=== PATIENT | male | born 1960 | race Caucasian/White ===

== ENCOUNTER 2022-03-12 08:49 | Outpatient (CLI) | payer OTHER, SELFPAY ==
[2022-03-12 10:27] LABS: PSA Screen* 0.79 ng/mL (0.10-4.00)
== END 2022-03-12 08:50 | disposition home or self-care (01) ==
LOC: NFLDREF 08:50
PROVIDERS: PCP Family Medicine; Visit Provider Family Medicine
DX: Z12.5 Encounter for screening for malignant neoplasm of prostate (principal)
CPT/HCPCS: 84153

== ENCOUNTER 2023-03-11 10:03 | Outpatient (CLI) | payer OTHER, SELFPAY | END 2023-03-11 10:04 | disposition home or self-care (01) | PROVIDERS: PCP Family Medicine; Visit Provider Family Medicine | DX: Z00.00 Encounter for general adult medical examination without abnormal findings (principal); E03.9 Hypothyroidism, unspecified; E27.1 Primary adrenocortical insufficiency; E56.9 Vitamin deficiency, unspecified; Z12.5 Encounter for screening for malignant neoplasm of prostate; Z13.6 Encounter for screening for cardiovascular disorders | CPT/HCPCS: 80053; 82306; 84153; 84443 ==

== ENCOUNTER 2023-03-22 08:30 | Outpatient (CLI) | payer OTHER, SELFPAY | END 2023-03-22 08:31 | disposition home or self-care (01) | LOC: NFLDREF 12:33 | PROVIDERS: PCP Family Medicine; Referring Provider Family Medicine; Visit Provider Family Medicine | DX: Z13.6 Encounter for screening for cardiovascular disorders (principal) | CPT/HCPCS: 80061 ==

== ENCOUNTER 2024-02-28 08:05 | Outpatient (CLI) | payer OTHER, SELFPAY ==
--- OUTSIDE RECORDS SUMMARY | 2024-03-01 13:38 | XMS_ITS | Clinical Summary ---
Author Organization [facility] Address [place], [place] [address] Care Team Providers Care Supervisor Finishing Department Name Role Phone Eduardo Isabel MD Primary Care Provider [phone] Tessa Chopra MD Unavailable Allergies No known active allergies Medications Medication Sig Dispensed Refills Start Date End Date Status CALCIUM + D 600 MG-200 UNIT TAB Take 1 tablet by mouth daily 30 12 02/10/2005 Active FISH OIL 1,000 MG CAP daily 0 0 12/13/2007 Active aspirin 81 mg tablet Take 1 tablet by mouth once daily with a meal. 0 12/04/2012 Active CPAP CPAP, heated humidifier, mask, headgear, filters and tubing. For home use. 1 unit 0 09/06/2013 Active sildenafil citrate (VIAGRA) 100 mg tablet Take 1 tablet by mouth once daily if needed for Erectile Dysfunction. Take 30min to 4 hours before sexual activity. Max 100mg/24hr. 15 tablet 0 12/11/2013 Active levothyroxine (SYNTHROID) 150 mcg tabletIndications:Un specified hypothyroidism,Khadra on's disease (HC) Take 1 tablet by mouth once daily. 90 tablet 3 01/01/2015 Active hydrocortisone (CORTEF) 10 mg tabletIndications:Ad dison's disease (HC) TAKE ONE AND ONE-HALF TABLETS BY MOUTH IN THE MORNING AND ONE TABLETIN THE EVENING WITH MEALS. 225 tablet 3 01/01/2015 Active fludrocortisone (FLORINEF) 0.1 mg tab NoIndications:Addiso n's disease (HC) Take 1 tablet by mouth once daily. 90 tablet 3 01/01/2015 Active metFORMIN (GLUCOPHAGE) 850 mg tablet Take 1 tablet by mouth 2 times daily. 0 01/26/2016 Active topiramate (TOPAMAX) 25 mg tablet Take 1 tablet by mouth 2 times daily. 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 Hypothyroidism 12/13/2007 Corticoadrenal insufficiency 02/10/2005 Other and unspecified hyperlipidemia 02/10/2005 Overview (02/10/2005): low HDL cholesterol Other chronic nonalcoholic liver disease 005 Overview (02/10/2005): fatty liver Resolved Problems Problem Noted Date Diagnosed Date Resolved Date Prediabetes 10/06/2010 01/08/2013 Immunizations Name Administration Dates Next Due Influenza, IIV3 (Age >=3 years) 01/05/20 14,01/23/2013,03/11/2006,2004,02/19/2000 Influenza, IIV4 01/03/2016 Pneumococcal Poly,23-Valent (Pneumovax) 09/22/1999 Td (Age >=7 Years) 04/25/1994 Td, Preservative Free (age > = 7 Years) 02/10/2005 Tdap 09/06/2011 Family History Medical History Relation Name Comments Heart Disease Father COPD CHF Hypertension Father Cancer Mother LUNG Hypertension Mother Thyroid Disease Mother Good Health Sister 2 Thyroid Disease Sister 2 one sister Good Health Son 4 Relation Name Status Comments Father (Age 79) COPD ; CHF ; HTN Maternal Grandfather Maternal Grandmother Mother (Age 51) LUNG CA ,T HYROID, DZ HTN Paternal Grandfather Paternal Grandmother Sister 2 Alive Son 4 Alive Social History Tobacco Use Types Packs/Day Years Used Date Smoking Tobacco: Never Smokeless Tobacco: Never Tobacco Cessation:Counseling Given: No Comments:household no Alcohol Use Standard Drinks/Week Comments No 0 (1 standard drink = 0.6 oz pur e alcohol) rare Sex and Gender Information Value Date Recorded Sex Assigned at Not on file Gender Identity Not on file Sexual Orientation Not on file Obstetrics History Last Filed Vital Signs Vital Sign Reading Time Taken Comments Blood Pressure 132/60 01/26/2016 3:38 PM CDT Pulse 77 01/26/2016 3:38 PM CDT Temperature 36.5 ??C (97.7 ??F) 04/25/2015 9:30 AM CS T Respiratory Rate 16 04/25/2015 9:30 AM MANAGER OF SOFTWARE DEVELOPMENT Oxygen Saturation 98% 01/26/2016 3:38 PM CDT Inhaled Oxygen Concentration - - Weight 116.1 kg (255 lb 14.4 oz) 01/26/2016 3:38 PM CDT Height 193 cm (6' 4) 01/26/2016 3:38 PM CDT Body Mass Index 31.15 01/26/2016 3:38 PM CDT Plan of Treatment Health Maintenance Due Date Last Done Comments HIV for age 15-65 12/15/1974 Hepatitis C screening for age 18-79 12/15/1977 Zoster (shingles) series for age 50+ (1 of 2) 12/15/2009 BMI (ht and wt on same day) for age 18+ 01/25/2017 01/26/2016 Depression screening for age 12+ 01/25/2017 01/26/2016 Lipids for age 45-75 01/08/2021 01/09/2016, 12/12/2014, 11/27/2013, Additional history exists Tetanus booster 09/05/2021 09/06/2011, 01/23, 04/25/1994 COVID-19 vaccine series ( season) 2023 02/12/2021, 07/21/2020, 06/30/2020 Influenza for age 50-64 12/25/2023 01/03/20 16, 01/04/2014, 01/23/2013, Additional history exists Colonoscopy through age 75 04/04/2024 04/04/2014, Pneumococcal series for age 6-64 Aged Out 09/22/1999 No longer eligible based on patient's age to complete this topic Tdap Completed 09/06/2011 Procedures Procedure Name Priority Date/Time Associated Diagnosis Comments LIPID PANEL Routine 01/09/2016 7:22 AM CDT Annual physical exam from Last 3 Months or Most Recently Relevant to Health Maintenance Results * (ABNORMAL) LIPID PANEL (01/09/2016 7:22 AM CDT) CHOLESTEROL,TOTAL 140 100 - 199 mg/dL 01/09/2016 8:23 AM CDT [facility] TRIGLYCERIDES 170(H) <150 mg/dL 01/09/2016 8:23 AM CDT [facility] HDL CHOLESTEROL 32(L) >40 mg/dL 01/09/2016 8:23 AM CDT [facility] NON-HDL CHOLESTEROL 108 <145 mg/dl 01/09/2016 8:23 AM CDT [facility] CHOL/HDL RATIO 4.38 <4.50 01/09/2016 8:23 AM CDT [facility] LDL CHOLESTEROL 74 <=130 mg/dL 01/09/2016 8:23 AM CDT [facility] PATIENT STATUS FASTING 01/09/2016 8:23 AM CDT [facility] Blood BLOOD SPECIMEN / Unknown Venipuncture / Unknown 01/09/2016 7:22 AM CDT 01/09/2016 7:22 AM CDT Eduardo Isabel MD CHEMISTRY [facility] [address] [place] [address], from Last 3 Months or Most Recently Relevant to Health Maintenance Advance Directives * Full Code (Latest Code Status on File) Date Activated Date Inactivated Comments 04/04/2014 7:10 AM 04/04/2014 10:37 AM * Full Code Date Activated Date Inactivated Comments 09/08/2011 12:50 PM 09/08/2011 6:52 PM * Full Code Date Activated Date Inactivated Comments 09/08/2011 12:46 PM 09/08/2011 12:50 PM Care Teams Supervisor Finishing Department Relationship Specialty Start Date End Date Eduardo Isabel MD [address] [place] [id number] PCP - General 12/22/05 Tessa Chopra MD [address] [place] [address] Endocrinology 01/03/12
--- OUTSIDE RECORDS SUMMARY | 2024-03-01 13:38 | XMS_ITS | Encounter Summary ---
Author Organization [facility] Address [address] [place] [address] Care Team Providers Care Frothing Machine Operator Name Role Phone [facility] Primary Care P rovider Ysamine Steele MDi lable Encounter Details Date Type Department Care Team (Late st Contact Info) Description 10/15/2022 [facility] Medical Advice [address] [address] Aroldo Thakkar Social History Tobacco Use Types Packs/Day Years Used Date Smoking Tobacco: Never Smokeless Tobacco: Never Alcohol Use Standard Drinks/Week Comments Yes 0 (1 standard drink = 0.6 oz pur e alcohol) PHQ-2 Answer Date Recorded PHQ-2 Score 0 06/21/2022 Sex and Gender Information Value Date Recorded Sex Assigned at Male 06/14/2022 10:00 AM SEWING MACHINE ASSEMBLER Legal Sex Male 4:57 AM SEWING MACHINE ASSEMBLER Gender Identity Male 06/14/2022 10:00 AM SEWING MACHINE ASSEMBLER Sexual Orientation Not on file COVID-19 Exposure Response Date Recorded In the last 10 days, have yo u been in contact with someone who was confirmed or suspected to have Coronavirus/COVID-19? No / Unsure 10/11/2022 10:09 AM CDT documented as of this encounter Plan of Treatment Not on file documented as of this encounter Visit Diagnoses Not on filedocumented in this encounter Care Teams Frothing Machine Operator Relationship Specialty Start Date End Date [facility] [address] [place] [address] PCP - General 01/24/20 Yasmine Steele MD [address] [address] Assigned Sleep Provider 06/26/22 documented as of this encounter
--- OUTSIDE RECORDS SUMMARY | 2024-03-01 13:38 | XMS_ITS | Encounter Summary ---
Author Organization [facility] Address [address] [place] [address] Care Team Providers Care Senior Oracle Pl Sql Developer Name Role Phone [facility] Primary Care Provider [facility] Primary Care P rovider Tk Palmer MD Unavailable Yasmine Steele MD Unavai lable Reason for Visit * Reason Onset Date Comments Appointment 09/12/2017 Per patient: bee n trying to get into the equipment store, needs an order inorder to get CPAP machine. Encounter Details Date Type Department Care Team (Late st Contact Info) Description 09/12/2017 [facility] [address] [address] [place] [address] [address] Appointment (Per patient: been trying to get into the equipment store, needs an order inorder to get CPAP machine. ) Social History Tobacco Use Types Packs/Day Years Used Date Smoking Tobacco: Never Smokeless Tobacco: Never Alcohol Use Standard Drinks/Week Comments Yes 0 (1 standard drink = 0.6 oz pur e alcohol) Sex and Gender Information Value Date Recorded Sex Assigned at Male 06/14/2022 10:00 AM BOX HINGE AND LOCK ATTACHER Legal Sex Male 4:57 AM BOX HINGE AND LOCK ATTACHER Gender Identity Male 06/14/2022 10:00 AM BOX HINGE AND LOCK ATTACHER Sexual Orientation Not on file documented as of this encounter Miscellaneous Notes * Telephone Encounter - Eliseo Sunshine - 09/12/2017 1:29 PM CDT Per patient: been trying to get into the equipment store, needs an order inorder to get CPAP machine. documented in this encounter Plan of Treatment Not on file documented as of this encounter Visit Diagnoses Not on filedocumented in this encounter Care Teams Senior Oracle Pl Sql Developer Relationship Specialty Start Date End Date Clinic - [facility] [address] [place] [address] PCP - General Clinic 03/09/17 01/23/20 [facility] [address] [place] [address] PCP - General 01/24/20 Tk Palmer MD [address] [place], [place] [id number] Assigned Sleep Provider 02/15/20 Yasmine Steele MD [address] [place], [place] [address] Assigned Sleep Provider 06/26/22 documented as of this encounter
--- OUTSIDE RECORDS SUMMARY | 2024-03-01 13:38 | XMS_ITS | Clinical Summary ---
Author Organization [facility] Address [address] [place] [address] Care Team Providers Care Camp Advisor Name Role Phone Eduardo Isabel MD Primary Care Provider Unavailab le Source Comments You are receiving this document as you are listed as the primary care provider,follow-up provider, or the patient has been referred to you for consultation.This is in compliance with the Medicare and[facility] EHR Incentive Program,which states Providers who transition their patient to another setting of careor provider of care or refers their patient to another provider of care shouldprovide summary care record for each transition of care or referral. My-Apps Allergies No known active allergies Medications Medication Sig Dispensed Refills Start Date End Date Status hydrocortisone (AKA CORTEF) 10 MG tablet Take 10 mg by mouth daily (every 24 hours). takes 1.5 tablets in the morning and 1 tablet in the afternoon, total daily dose 25 mg. 03/29/2014 Active fludrocortisone (AKA FLORINEF) 0.1 MG tablet Take 0.1 mg by mouth daily (every 24 hours). 03/29/2014 Active levothyroxine (AKA SYNTHROID) 150 MCG tablet Take 150 mcg by mouth daily (every 24 hours). Indications: HYPOTHYROIDISM 03/29/2014 Active Fludrocortisone Acetate Take 100 mcg by mouth. Ac tive Levothyroxine Sodium Take 150 mcg by mouth. Ac tive Cholecalciferol 100 MCG (4000 UT) CAPS Take by mouth. 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 Hypothyroidism 03/29/2014 Immunizations Name Administration Dates Next Due Influenza, Unspecified Formulation 01/04/2014 PPSV23 (Pneumovax) 09/22/1999 TDAP (ADACEL) 09/06/2011 Td 02/10/2005,04/25/1994 Social History Tobacco Use Types Packs/Day Years Used Date Smoking Tobacco: Never Alcohol Use Standard Drinks/Week Comments Yes 0 (1 standard drink = 0.6 oz pur e alcohol) Sex and Gender Information Value Date Recorded Sex Assigned at Not on file Gender Identity Not on file Sexual Orientation Not on file Last Filed Vital Signs Vital Sign Reading Time Taken Comments Blood Pressure 138/60 03/29/2014 3:05 PM DEBT COLLECTOR Pulse 62 03/29/2014 3:05 PM DEBT COLLECTOR Temperature 36.6 ??C (97.9 ??F) 03/29/2014 3:05 PM CS T Respiratory Rate - - Oxygen Saturation 98% 03/29/2014 3:05 PM DEBT COLLECTOR Inhaled Oxygen Concentration - - Weight 117.5 kg (259 lb) 10/09/2020 1:31 PM CDT Height 189.2 cm (6' 2.5) 10/09/2020 2:04 PM CDT Body Mass Index 32.81 10/09/2020 1:31 PM CDT Plan of Treatment Health Maintenance Due Date Last Done Comments Colon Cancer Screening Plan Due 1960 Hep C Screening (Preventive Services) 1960 PSA Screening Discussion 1960 HIV Screening (Preventive Services) 1975 Adult Preventive Visit 12/15/1977 Cholesterol 12/15/1994 DTaP/Tdap/Td (2 - Tdap) 09/05/2021 09/06/19 12, 02/10/2005, 04/25/1994 COVID-19 Vaccine ( season) 2023 07/21/2020, 06/30/2020 Influenza (#1) 2023 01/06/2020, 12/25, 12/31/2017, Additional history exists RSV (1 - 1-dose 75+ series) 12/15/2034 Pneumococcal Aged Out 09/22/1999 No longer eligi ble based on patient's age to complete this topic Zoster/Shingles Completed 10/25/2018, 08/12/2018 HepA Aged Out No longer eligi ble based on patient's age to complete this topic HepB Aged Out No longer eligi ble based on patient's age to complete this topic Hib Aged Out No longer eligi ble based on patient's age to complete this topic IPV (Polio) Aged Out No longer eligi ble based on patient's age to complete this topic Infant RSV Aged Out No longer eligi ble based on patient's age to complete this topic MCV4 Aged Out No longer eligi ble based on patient's age to complete this topic Care Teams Camp Advisor Relationship Specialty Start Date End Date Eduardo Isabel MD PCP - General 03/29/14
--- OUTSIDE RECORDS SUMMARY | 2024-03-01 13:38 | XMS_ITS | Clinical Summary ---
Author Organization [facility] Address [address] [place] [address] Care Team Providers Care Preschool Associate Teacher Name Role Phone Unavailable Primary Care Provider Unavailabl e Allergies No known active allergies Medications Medication Sig Dispensed Refills Start Date End Date Status Calcium-Cholecalcife rol, D3, 600 mg(1,500mg) -200 unit oral Tab Take 1 tablet by mouth daily 02/10/2005 Active omega-3 fatty acids-fish oil 1,000 mg oral Cap daily 12/13/2007 Active cholecalciferol, vitamin D3, (VITAMIN D3) 4,000 unit oral Cap Take by mouth once daily. Active multivit-min/ferrous fumarate (MULTI VITAMIN ORAL) Take by mouth. 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 07/21/2015 Immunizations Name Administration Dates Next Due Influenza recombinant (FluBl ok Quadrivalent PF) 01/06/2020,01/12/2019,12/31/2017,2015 Influenza split virus quadrivalent 01/08,01/12/2019,01/04/2014,2012,03/11/2006,02/10/2005,02/07/2004 ContaAzul 12+ Yrs Monovalent CO VID Vaccine (purple cap) 02/12/2021,07/21/2020,06/30/2020 Pneumococcal PPSV23 09/22/1999 Td 02/10/2005 Td adult absorbed PF (2 Lf) 02/10/2005, 5 Tdap 09/06/2011 Zoster Recombinant 10/25/2018,08/12/2018 Family History Medical History Relation Comments Heart Disease Father CHF Gastric/Stomach Cancer Maternal Grandmother Lung Cancer Mother Relation Status Comments Father Alive Maternal Grandmother Mother (Age 51) Paternal Grandfather Social History Tobacco Use Types Packs/Day Years Used Date Smoking Tobacco: Never Smokeless Tobacco: Never Tobacco Cessation:Counseling Given: Not Answered Alcohol Use Standard Drinks/Week Comments No 0 (1 standard drink = 0.6 oz pur e alcohol) PHQ-2 Answer Date Recorded PHQ-2 Score 0 03/08/2018 Sex and Gender Information Value Date Recorded Sex Assigned at Male 01/28/2020 1:59 PM CDT Gender Identity Male 01/28/2020 1:59 PM CDT Sexual Orientation Straight 01/28/2020 1: 59 PM CDT Last Filed Vital Signs Vital Sign Reading Time Taken Comments Blood Pressure 132/62 03/14/2023 11:06 AM SUBSTATION TECHNICIAN Pulse 46 03/14/2023 11:06 AM SUBSTATION TECHNICIAN Temperature 35.8 ??C (96.5 ??F) 03/14/2023 11:[address] Respiratory Rate - - Oxygen Saturation 97% 03/14/2023 11:06 AM SUBSTATION TECHNICIAN Inhaled Oxygen Concentration - - Weight 115.7 kg (255 lb) 03/14/2023 11:06 AM SUBSTATION TECHNICIAN Height 188 cm (6' 2) 02/11/2021 11:30 AM CDT Body Mass Index 32.74 02/11/2021 11:30 AM CDT Plan of Treatment Health Maintenance Due Date Last Done Comments Anxiety Screening (JOJO-2) 12/15/1961 Depression Assessment (PHQ-2) 12/15/1961 RSV Vaccines (1 - Risk 60-74 years 1-dose series) 2019 Yearly Review of HCD 02/11/2022 02/11/2021, 02/11/2020, 02/07/2019, Additional history exists COVID-19 Vaccine ( season) 2023 03/05/2022, 11/06/2021, 02/12/2021, Additional history exists Influenza Vaccine (#1) 2023 , 01/06/2020, 01/12/2019, Additional history exists Colonoscopy 04/04/2024 04/04/2014 Lipid Screening 02/09/2027 02/09/2022, 01/23, 02/05/2020, Additional history exists Adult Tetanus Booster 03/11/2033 03/11/2023 , 09/06/2011, 02/10/2005, Additional history exists Pneumococcal <65 Aged Out 09/22/1999 No longer e ligible based on patient's age to complete this topic Zoster Vaccine Completed 10/25/2018, 08/12/2018 Hepatitis C Screening Completed 02/07/2019 Procedures Procedure Name Priority Date/Time Associated Diagnosis Comments LIPID PROFILE CASCADE OP Routine 02/09/2022 7:35 AM CDT Prediabetes HEP C ANTIBODY Routine 02/07/2019 10:51 AM CDT Encounter for hepatitis C screening test for low risk patient from Last 3 Months or Most Recently Relevant to Health Maintenance Results * (ABNORMAL) LIPID PROFILE CASCADE OP (02/09/2022 7:35 AM CDT) Cholesterol OP 175 <200 mg/dL 02/09/2022 8:12 AM CDT [facility] Triglycerides OP 132 <150 mg/dL 02/09/2022 8:12 AM CDT [facility] LDL Cholesterol, Calc OP 102(H) <100 mg/dL 02/09/2022 8:12 AM CDT [facility] HDL Cholesterol OP 47 >40 mg/dL 2021 8:12 AM CDT [facility] Cholesterol/HDL Ratio OP 3.7 0.0 - 4.9 02/09/2022 8:12 AM CDT [facility] Specimen Type 02/09/2022 8:12 AM T [facility] Blood Venipuncture / Unknown 02/09/2022 7:35 AM CDT 02/09/2022 7:35 AM CDT Narrative [facility] - 02/09/2022 8:12 AM CDT LDL CHOLESTEROL REFERENCE RANGES: (FOR PATIENTS W/O HEART DISEASE) <100 mg/dL = Optimal 100-129 mg/dL = Near/Above Optimal 130-159 mg/dL = Borderline High 160-189 mg/dL = High >/= 190 mg/dL = Very High Tessa Chopra MD CHEMISTRY ORDERABLE [facility] [address] [place] [address], * HEP C ANTIBODY (02/07/2019 10:51 AM CDT) Hepatitis C Antibody Non-Reacti ve Non-Reacti ve 02/07/2019 11:06 PM CDT [facility] Blood Venipuncture / Unknown 02/07/2019 10:51 AM CDT 02/07/2019 10:51 AM CDT Joshua Giraldo MD IMMUNOLOGY ORDERABLE [facility] [address] [place] [address] from Last 3 Months or Most Recently Relevant to Health Maintenance
--- OUTSIDE RECORDS SUMMARY | 2024-03-01 13:38 | XMS_ITS | Clinical Summary ---
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 Corticoadrenal insufficiency 02/10/2005 Social History Tobacco Use Types Packs/Day Years Used Date Smoking Tobacco: Never Smokeless Tobacco: Never Tobacco Cessation:Counseling Given: No Alcohol Use Standard Drinks/Week Comments Yes 0 (1 standard drink = 0.6 oz pur e alcohol) PHQ-2 Answer Date Recorded PHQ-2 Score 0 06/21/2022 Adolescent Education Answer Date Record ed Getting School Help Needed Not on file 01/16 Sex and Gender Information Value Date Recorded Sex Assigned at Male 06/14/2022 10:00 AM COMMUNICATION COORDINATOR Legal Sex Male 4:57 AM COMMUNICATION COORDINATOR Gender Identity Male 06/14/2022 10:00 AM COMMUNICATION COORDINATOR Sexual Orientation Not on file Last Filed Vital Signs Vital Sign Reading Time Taken Comments Blood Pressure 134/73 10/11/2022 10:28 AM CDT Recheck Pulse 46 10/11/2022 10:23 AM CDT Temperature 36.7 ??C (98.1 ??F) 04/13/2020 8:50 AM CS T Respiratory Rate 16 01/24/2020 3:03 PM CDT Oxygen Saturation 99% 10/11/2022 10: 23 AM CDT Inhaled Oxygen Concentration - - Weight 119.2 kg (262 lb 11.2 oz) 2022 10:23 AM CDT Height 189.2 cm (6' 2.5) 10/11/2022 10 :23 AM CDT Body Mass Index 33.28 10/11/2022 10:23 AM CDT Plan of Treatment Health Maintenance Due Date Last Done Comments ADVANCE CARE PLANNING 1959 ANNUAL REVIEW OF HM ORDERS 1959 CT COLONOGRAPHY 1959 FIT 1959 FLEX SIG 1959 TSH W/FREE T4 REFLEX 1959 sDNA (Cologuard) 1959 COLONOSCOPY 12/15/1969 COLORECTAL CANCER SCREENING 12/15/1969 HIV SCREENING 12/15/1974 HEPATITIS C SCREENING 12/15/1977 LIPID 1999 DTAP/TDAP/TD IMMUNIZATION (2 - Td or Tdap) 09/05/2021 09/06/2011, 02/10/2005, 02/10/2005, Additional history exists YEARLY PREVENTIVE VISIT 02/11/2022 02/12/20 21, 02/11/2020, 02/07/2019, Additional history exists GLUCOSE 01/23/2023 01/24/2020 PHQ-2 (once per calendar year) 2023 06/21/2022, 03/09/2017 COVID-19 Vaccine ( season) 2023 03/05/2022, 11/06/2021, 02/12/2021, Additional history exists INFLUENZA VACCINE (#1) 2023 2, 01/08/2021, 01/08/2020, Additional history exists RSV VACCINE (1 - 1-dose 75+ series) 12/15/2034 Pneumococcal Vaccine: Pediatrics (0 to 5 Years) and At-Risk Patients (6 to 64 Years) Aged Out 09/22/1999 No longer eligible based on patient's age to complete this topic ZOSTER IMMUNIZATION Completed 10/25/2018, 9 HPV IMMUNIZATION Aged Out No longer e ligible based on patient's age to complete this topic MENINGITIS IMMUNIZATION Aged Out No l onger eligible based on patient's age to complete this topic RSV MONOCLONAL ANTIBODY Aged Out No l onger eligible based on patient's age to complete this topic Procedures Procedure Name Priority Date/Time Associated Diagnosis Comments BASIC METABOLIC PANEL STAT 01/24/2020 1:32 PM CDT Bradycardia, sinus from Last 3 Months or Most Recently Relevant to Health Maintenance Results * (ABNORMAL) Basic metabolic panel (BMP) (01/24/2020 1:32 PM CDT) Sodium 139 133 - 144 mmol/L 01/24/2020 2:03 PM [facility] Potassium 3.8 3.4 - 5.3 mmol/L 01/24/2020 2:03 PM [facility] Chloride 105 94 - 109 mmol/L 01/24/2020 2:03 PM [facility] Carbon Dioxide 28 20 - 32 mmol/L 01/24/2020 2:09 PM [facility] Anion Gap 6 3 - 14 mmol/L 01/24/2020 2:09 PM [facility] Glucose 101(H) 70 - 99 mg/dL 01/24/2020 2:09 PM [facility] Urea Nitrogen 19 7 - 30 mg/dL 01/24/2020 2:09 PM [facility] Creatinine 1.19 0.66 - 1.25 mg/dL 01/24/2020 2:09 PM [facility] GFR Estimate 66 >60 mL/min/{1. 73_m2} 01/24/2020 2:09 PM [facility] Comment: Non GFR Calc Starting 04/11/2018, serum creatinine based estimated GFR (eGFR) will be calculated using the Chronic Kidney Disease Epidemiology Collaboration (CKD-EPI) equation. GFR Estimate If Black 76 >60 mL/min/{1. 73_m2} 01/24/2020 2:09 PM [facility] Comment: GFR Calc Starting 04/11/2018, serum creatinine based estimated GFR (eGFR) will be calculated using the Chronic Kidney Disease Epidemiology Collaboration (CKD-EPI) equation. Calcium 9.5 8.5 - 10.1 mg/dL 01/24/2020 2:09 PM CDT [facility] Blood specimen (specimen) 01/24/2020 1:32 PM CDT 01/24/2020 1:46 PM CDT us Kanu Zamora MD LAB - BLOOD ORDERABLES Final Result [facility] [address] [place] [address], [facility] [phone] from Last 3 Months or Most Recently Relevant to Health Maintenance Insurance [facility] [employer] Care Teams Bodywork Therapist Relationship Specialty Start Date End Date [facility] [address] [place], [place] [phone] PCP - General 01/24/20 Yasmine Steele MD [address] [place], [place] [address] Assigned Sleep Provider 06/26/22
--- OUTSIDE RECORDS SUMMARY | 2024-03-01 13:38 | XMS_ITS | Referral Summary ---
Author Organization [facility] Address [address] [place] [address] Care Team Providers Care Supervisor Metal Hanging Name Role Phone Unavailable Primary Care Provider [...] PF) 01/06/2020,01/12/2019,12/31/2017,2015 Influenza split virus quadrivalent 01/08,01/12/2019,01/04/2014,2012,03/11/2006,02/10/2005,02/07/2004 [employer] 12+ Yrs Monovalent CO VID Vaccine (purple cap) 02/12/2021,07/21/2020,06/30/2020 Pneumococcal PPSV23 09/22/1999 Td 02/10/2005 Td adult absorbed PF (2 Lf) 02/10/2005, 5 Tdap 09/06/2011 Zoster Recombinant 10/25/2018,08/12/2018 Social History Tobacco Use Types Packs/Day Years [...] Comments Blood Pressure 132/62 03/14/2023 11:06 AM DESKTOP SUPPORT SPECIALIST Pulse 46 03/14/2023 11:06 AM DESKTOP SUPPORT SPECIALIST Temperature 35.8 ??C (96.5 ??F) 03/14/2023 11:[address] Respiratory Rate - - Oxygen Saturation 97% 03/14/2023 11:06 AM DESKTOP SUPPORT SPECIALIST Inhaled Oxygen Concentration - - Weight 115.7 kg (255 lb) 03/14/2023 11:06 AM DESKTOP SUPPORT SPECIALIST Height 188 cm (6' 2) 02/11/2021 11:30 AM CDT Body Mass Index 32.74 02/11/2021 11:30 AM CDT Plan of Treatment Not on file Procedures Procedure Name Priority Date/Time Associated Diagnosis [...] 175 <200 mg/dL 02/09/2022 8:[address] [facility] Triglycerides OP 132 <150 mg/dL 02/09/2022 8:[address] [facility] LDL Cholesterol, Calc OP 102(H) <100 mg/dL 02/09/2022 8:[address] [facility] HDL Cholesterol OP 47 >40 mg/dL 2021 8:[address] [facility] Cholesterol/HDL Ratio OP 3.7 0.0 - 4.9 02/09/2022 8:[address] [facility] Specimen Type 02/09/2022 8:[address] [facility] Blood Venipuncture / Unknown 02/09/2022 7:35 AM CDT 02/09/2022 7:[address] [facility] - 02/09/2022 8:12 AM CDT LDL CHOLESTEROL REFERENCE RANGES: (FOR PATIENTS W/O HEART DISEASE) <100 mg/dL = Optimal 100-129 mg/dL = Near/Above Optimal 130-159 mg/dL = Borderline High 160-189 mg/dL = High >/= 190 mg/dL = Very High Tessa Chopra MD CHEMISTRY ORDERABLE [facility] [address] [facility] [address] [place] [address], * HEP C ANTIBODY (02/07/2019 10:51 AM CDT) Hepatitis C Antibody Non-Reacti ve Non-Reacti ve 02/07/2019 11:06 PM CDT [facility] Blood Venipuncture / Unknown 02/07/2019 10:51 AM CDT 02/07/2019 10:51 AM CDT Joshua Giraldo MD IMMUNOLOGY ORDERABLE [facility] [address] [place] [address] from Last 3 Months or Most Recently Relevant to Health Maintenance
--- OUTSIDE RECORDS SUMMARY | 2024-03-01 13:38 | XMS_ITS | Encounter Summary ---
Author Organization [facility] Address [address] [place] [address] Care Team Providers Care Lubrication Technician Name Role Phone [facility] Primary Care Provider [facility] Primary Care P rovider Tk Palmer MD Unavailable Yasmine Steele MD Unavai lable Encounter Details Date Type Department Care Team (Late st Contact Info) Description 12/05/2019 [facility] Medical Advice [facility] [address] [phone] Angie Hernandez MA Social History Tobacco Use Types Packs/Day Years Used Date Smoking Tobacco: Never Smokeless Tobacco: Never Alcohol Use Standard Drinks/Week Comments Yes 0 (1 standard drink = 0.6 oz pur e alcohol) PHQ-2 Answer Date Recorded PHQ-2 Score 0 05/03/2018 Sex and Gender Information Value Date Recorded Sex Assigned at Male 06/14/2022 10:00 AM FUNERAL COUNSELOR Legal Sex Male 4:57 AM FUNERAL COUNSELOR Gender Identity Male 06/14/2022 10:00 AM FUNERAL COUNSELOR Sexual Orientation Not on file COVID-19 Exposure Response Date Recorded In the last month, have you been in contact with someone who was confirmed or suspected to have Coronavirus / COVID-19? No / Unsure 12/07/2019 9:23 AM CDT documented as of this encounter Plan of Treatment Not on file documented as of this encounter Visit Diagnoses Not on filedocumented in this encounter Care Teams Lubrication Technician Relationship Specialty Start Date End Date Clinic - [facility] [address] [place] [address] PCP - General Clinic 03/09/17 01/23/20 [facility] [address] [place] [address] PCP - General 01/24/20 Tk Palmer MD [address] [place], [place] [address] Assigned Sleep Provider 02/15/20 Yasmine Steele MD [address] [place], [place] [phone] Assigned Sleep Provider 06/26/22 documented as of this encounter
--- OUTSIDE RECORDS SUMMARY | 2024-03-01 13:38 | XMS_ITS | Encounter Summary ---
Author Organization [facility] Address [facility] [place] [address] Care Team Providers Care Human Resources Analyst Name Role Phone [facility] Primary Care P rovider Tk Palmer MD Unavailable Yasmine Steele MD Unavai lable Encounter Details Date Type Department Care Team (Late st Contact Info) Description 09/03/2020 [facility] Medical Advice [address] [address] Tk Palmer MD [address] [place] [address] Social History Tobacco Use Types Packs/Day Years Used Date Smoking Tobacco: Never Smokeless Tobacco: Never Alcohol Use Standard Drinks/Week Comments Yes 0 (1 standard drink = 0.6 oz pur e alcohol) PHQ-2 Answer Date Recorded PHQ-2 Score 0 05/03/2018 Sex and Gender Information Value Date Recorded Sex Assigned at Male 06/14/2022 10:00 AM VP PRODUCT Legal Sex Male 4:57 AM VP PRODUCT Gender Identity Male 06/14/2022 10:00 AM VP PRODUCT Sexual Orientation Not on file documented as of this encounter Plan of Treatment Not on file documented as of this encounter Visit Diagnoses Not on filedocumented in this encounter Care Teams Human Resources Analyst Relationship Specialty Start Date End Date [facility] [address] [place], [place] [phone] PCP - General 01/24/20 Tk Palmer MD [address] [place] [address] Assigned Sleep Provider 02/15/20 Yasmine Steele MD [address] [place] [address] Assigned Sleep Provider 06/26/22 documented as of this encounter
--- OUTSIDE RECORDS SUMMARY | 2024-03-01 13:38 | XMS_ITS | Referral Summary ---
Author Organization [facility] Address [address] [place] [address] Care Team Providers Care Boiler Or Engine Operator Name Role Phone [facility], [facility] Primary Care P rovider Yasmine Steele MD [...] Sex Assigned at Male 06/14/2022 10:00 AM LINE LOCATOR Legal Sex Male 4:57 AM LINE LOCATOR Gender Identity Male 06/14/2022 10:00 AM LINE LOCATOR Sexual Orientation Not on file Last Filed [...] 10/11/2022 10:23 AM CDT Plan of Treatment Not on file Procedures Procedure Name Priority Date/Time Associated Diagnosis Comments BASIC METABOLIC PANEL STAT 01/24/2020 1:32 PM CDT Bradycardia, sinus from Last 3 Months or Most Recently Relevant to Health Maintenance Results * (ABNORMAL) Basic metabolic panel (BMP) (01/24/2020 1:32 PM CDT) Sodium 139 133 - 144 mmol/L 01/24/2020 2:03 PM [facility] Potassium 3.8 3.4 - 5.3 mmol/L 01/24/2020 2:03 PM [facility] Chloride 105 94 - 109 mmol/L 01/24/2020 2:03 PM [facility] Carbon Dioxide 28 20 - 32 mmol/L 01/24/2020 2:09 PM [facility] Anion Gap 6 3 - 14 mmol/L 01/24/2020 2:09 PM [facility] Glucose 101(H) 70 - 99 mg/dL 01/24/2020 2:09 PM [facility] Urea Nitrogen 19 7 - 30 mg/dL 01/24/2020 2:09 PM [facility] Creatinine 1.19 0.66 - 1.25 mg/dL 01/24/2020 2:09 PM [facility] GFR Estimate 66 >60 mL/min/{1. 73_m2} 01/24/2020 2:09 PM [facility] Comment: Non GFR Calc Starting 04/11/2018, serum creatinine based estimated GFR (eGFR) will be calculated using the Chronic Kidney Disease Epidemiology Collaboration (CKD-EPI) equation. GFR Estimate If Black 76 >60 mL/min/{1. 73_m2} 01/24/2020 2:09 PM CDT [facility] Comment: GFR Calc Starting 04/11/2018, serum creatinine based estimated GFR (eGFR) will be calculated using the Chronic Kidney Disease Epidemiology Collaboration (CKD-EPI) equation. Calcium 9.5 8.5 - 10.1 mg/dL 01/24/2020 2:09 PM CDT [facility] Blood specimen (specimen) 01/24/2020 1:32 PM CDT 01/24/2020 1:46 PM CDT us Kanu Zamora MD LAB - BLOOD ORDERABLES Final Result [facility] [address] [place] [address], [facility] [phone] from Last 3 Months or Most Recently Relevant to Health Maintenance Insurance [facility] INDIVIDUAL FAMILY PLANS Care Teams Boiler Or Engine Operator Relationship Specialty Start Date End Date [facility], [facility] [address] [place] [address] PCP - General 01/24/20 Yasmine Steele MD [address] [place], [place] [phone] Assigned Sleep Provider 06/26/22
--- OUTSIDE RECORDS SUMMARY | 2024-03-01 13:38 | XMS_ITS | Clinical Summary ---
Author Organization [facility] Address [address] [address] Phone Care Team Providers Care Float Tender Name Role Phone Unavailable Primary Care Provider Unavailabl e Allergies No known active allergies Medications ondansetron (Zofran ODT) 4 MG disintegrating tablet Take 1 Tablet by mouth every eight hours as needed for Nausea or Vomiting. 10 Tablet Active Social History Tobacco Use Types Packs/Day Years Used Date Smoking Tobacco: Never Assessed Sex and Gender Information Value Date Recorded Sex Assigned at Not on file Legal Sex Male 6:35 AM CDT Gender Identity Not on file Sexual Orientation Not on file Last Filed Vital Signs Vital Sign Reading Time Taken Comments Blood Pressure 142/53 11/21/2020 8:53 AM CDT Pulse 73 11/21/2020 9:03 AM CDT Temperature 38.3 ??C (101 ??F) 11/21/2020 8:13 AM CDT Respiratory Rate 13 11/21/2020 9:03 AM CDT Oxygen Saturation 97% 11/21/2020 9:03 AM CDT Inhaled Oxygen Concentration - - Weight 117 kg (258 lb) 11/21/2020 6:42 AM CDT Height 188 cm (6' 2) 11/21/2020 6:42 AM CDT Body Mass Index 33.13 11/21/2020 6:42 AM CDT Plan of Treatment Health Maintenance Due Date Last Done Comments CT Colonography 1959 Cologuard 1960 Colonoscopy 1959 Colorectal Cancer Screening 1959 FIT/FOBT 1959 Sigmoidoscopy 1959 PERTUSSIS (Standing Order) 12/15/1978 TETANUS (Standing Order) 12/15/1978 Shingrix (Zoster recombinant ) vaccine (Standing Order) (1 of 2) 12/15/2009 COVID-19 Vaccine (2023-2 5 season) 2023 Influenza Vaccine Seasonal (Standing Order) (#1) 2023 RSV Vaccination (60+ yrs) (Abrysvo/Arexvy) (1 - 1-dose 75+ series) 12/15/2034 HPV Vaccine (Standing Order) Aged Out No longer eligible based on patient's age to complete this topic Hepatitis B Vaccine (Standin g Order) Aged Out No longer eligible b ased on patient's age to complete this topic Pneumococcal/PCV20 Vaccine: Pediatrics (2-5 yrs) and At-Risk Patients (6-64 yrs) (Standing Order) Aged Out No longer eligible b ased on patient's age to complete this topic Insurance [facility] OTHER STATE
== END 2024-02-28 08:06 | disposition home or self-care (01) ==
LOC: NFLDREF 03-01 13:36
PROVIDERS: PCP Family Medicine; Referring Provider Family Medicine; Visit Provider Family Medicine
DX: E03.8 Other specified hypothyroidism (principal); E06.3 Autoimmune thyroiditis; Z12.5 Encounter for screening for malignant neoplasm of prostate; Z13.6 Encounter for screening for cardiovascular disorders
CPT/HCPCS: 80053; 80061; 84443; G0103

== ENCOUNTER 2024-11-30 08:59 | Outpatient (CLI) | payer MEDICARE, BC, SELFPAY | END 2024-11-30 09:00 | disposition home or self-care (01) | LOC: NFLDREF 12-05 13:18 | PROVIDERS: PCP Family Medicine; Referring Provider Family Medicine; Visit Provider Family Medicine | DX: E06.3 Autoimmune thyroiditis (principal); E03.8 Other specified hypothyroidism; K21.9 Gastro-esophageal reflux disease without esophagitis; E27.1 Primary adrenocortical insufficiency | CPT/HCPCS: 84439; 84443 ==

== ENCOUNTER 2025-03-15 08:05 | Outpatient (CLI) | payer MEDICARE, BC, SELFPAY | END 2025-03-15 08:06 | disposition home or self-care (01) | LOC: NFLDREF 03-21 13:36 | PROVIDERS: PCP Family Medicine; Referring Provider Family Medicine; Visit Provider Family Medicine | DX: E06.3 Autoimmune thyroiditis (principal); Z00.00 Encounter for general adult medical examination without abnormal findings | CPT/HCPCS: 80048; 80061; 80076; 84443; 85025; G0103 ==